=== PATIENT | male | born 1975 | race Caucasian/White ===

== ENCOUNTER 2018-03-15 10:40 | Emergency (ER) | payer OTHER ==
[~2018-03-15] VITALS: Ht 182.9 cm; Wt 81.7 kg
--- NOTE | ~2018-03-15 | EKG ---
[address] [address] [place] [address] ELECTROCARDIOGRAM REPORT Name: MALAIKA CAMPBELL Room #: [facility]#: [id number] Admission: 03/15/18 Attend Phys: Discharge: 03/15/18 Date of : 79 Report #: [id number] THIS REPORT FOR: //name// [facility] ED Test Date: 2018-03-15 Test Time: 10:47:04 Pat Name: MALAIKA CAMPBELL Department: Room: Gender: Electrical Engineering Technologist: JIMENA : 1975 Requested By: Alan Johnson Order Number: [id number] MD: Jw Anders Measurements Intervals [place] Rate: 57 P: 37 [place]: 157 QRS: 38 QRSD: 112 T: 15 QT: 430 QTc: 419 Interpretive Statements Sinus bradycardia Incomplete right bundle branch block ST elev, probable normal early repol pattern No previous ECG available for comparison Electronically Signed On 03-15-2018 17:26:38 CDT by Jw Anders [email or web address] <ELECTRONICALLY SIGNED> By: Jw Anders MD, [facility] 03/15/18 1726 1047 [id number] Jw Anders MD, FACC /EPI
[~2018-03-15 10:40] MED LIST: CATAPRES-TTS 10.1 MG PO; PERCOCET 7.5-51 EACH PO; ZOLOFT 50 MG TA50 M1 PO
[2018-03-15 11:04] LABS: BASOPHILS 0.7 % (0.0-2.0); EOSINOPHILS 3.7 % (0.0-3.0); HEMATOCRIT 47.1 % (42.0-52.0); HEMOGLOBIN 16.1 gm/dL (14.0-18.0); LYMPHOCYTES 24.6 % (24.0-44.0); MCH 29.1 pg (26.0-34.0); MCHC 34.1 g/dL (28.0-37.0); MCV 85.3 fL (80.0-100.0); MONOCYTES 9.9 % (1.0-8.0); PLATELET COUNT 205 thou/uL (150-400); POLYS 61.1 % (36.0-66.0); RBC 5.52 mil/uL (4.50-6.00); RDW 13.8 % (10.5-14.5); WBC 4.8 thou/uL (4.0-11.0)
[2018-03-15 11:12] LABS: ANION GAP 5 mmol/L (7-16); BUN 13 mg/dL (7-18); CALCIUM 9.2 mg/dL (8.5-10.1); CHLORIDE 103 mmol/L (98-107); CO2 29 mmol/L (21-32); CREATININE 0.9 mg/dL (0.7-1.3); GLUCOSE 118 mg/dL (74-106); SODIUM 137 mmol/L (136-145)
[2018-03-15 11:13] LABS: POTASSIUM 4.1 mmol/L (3.5-5.1)
[2018-03-15 11:20] LABS: TROPONIN-I <0.06 ng/mL (<0.06)
[2018-03-15 12:46] VITALS: BP 124/81
[2018-03-15 13:16] LABS: AMP/METHAMP Negative (Negative); BARBITURATES Negative (Negative); BENZODIAZEPINES Negative (Negative); COCAINE Negative (Negative); METHADONE Negative (Negative); OPIATES POSITIVE (Negative); PCP Negative (Negative)
== END 2018-03-15 13:02 | disposition home or self-care (01) ==
LOC: ER 10:40
PROVIDERS: Nurse Practitioner
DX: R07.89 Other chest pain (principal); F11.10 Opioid abuse, uncomplicated; R42 Dizziness and giddiness; I10 Essential (primary) hypertension